=== PATIENT | male | born 2000 | race Hispanic/Latino ===

== ENCOUNTER 2018-12-23 11:04 | Inpatient (IN) ==
[2018-12-23] MEDS ORDERED: NS 1,000 ML IV ONE ×2 (11:36→11:38)
[2018-12-23] MEDS ORDERED: TORADOL IV ONE (11:37)
[2018-12-23] MEDS ORDERED: ZOFRAN IV ONE (11:37)
[2018-12-23 11:58] LABS: URINE SOURCE CLEAN CATCH
[2018-12-23 12:04] LABS: BASO# 0.02 X1000 (0.0-0.2); BASO% 0.1 % (0.0-0.8); EOS# 0.05 X1000 (0.0-0.7); EOS% 0.3 % (0.0-10.0); HEMATOCRIT 40.5 % (42.0-52.0); HEMOGLOBIN 14.1 g/dL (14.0-18.0); IMM GRAN# 0.04 X1000 (0.0-0.04); IMM GRAN% 0.2 % (0.0-0.5); LYMPH# 1.91 X1000 (1.2-3.4); LYMPH% 10.9 % (20.5-51.1); MCHC 34.8 g/dL (33-37); MCV 80.5 FL (81-99); MONO# 1.36 X1000 (0.11-0.59); MONO% 7.7 % (1.7-9.3); MPV 10.4 FL (7.4-10.4); NEUT# 14.17 X1000 (1.4-6.5); NEUT% 80.8 % (42.2-75.2); PLT 295 X1000 (130-400); RBC 5.03 XMIL (4.7-6.1); WBC 17.55 X1000 (4.8-10.8)
[2018-12-23 12:05] LABS: BILIRUBIN URINE NEGATIVE (NEGATIVE); BLOOD URINE TRACE (NEGATIVE); COLOR YELLOW; GLUCOSE URINE NEGATIVE (NEGATIVE); KETONE URINE TRACE mg/dL (NEGATIVE); LEUKOCYTES URINE NEGATIVE (NEGATIVE); NITRITE URINE NEGATIVE (NEGATIVE); PROTEIN URINE NEGATIVE (NEGATIVE); TURBIDITY URINE CLEAR (CLEAR); UROBILINOGEN URINE NORMAL (NORMAL)
[2018-12-23 12:06] LABS: UR EPITHELIAL CELLS <10 /HPF (<10); URINE BACTERIA NEGATIVE /HPF; URINE RBC <10 /HPF (<10); URINE WBC <10 /HPF (<10)
[2018-12-23 12:08] LABS: INR 1.07; PROTIME 14.1 Seconds (11.0-16.0)
[2018-12-23 12:09] LABS: PTT 27.9 Seconds (22.3-41.8)
[2018-12-23 12:27] LABS: AGAP 12; ALB/GLOB RATIO 1.3; ALBUMIN 4.8 g/dL (3.5-5.0); ALKALINE PHOSPHATASE 136 U/L (32-122); BUN 8 mg/dL (8-22); CALCIUM 9.6 mg/dL (8.8-10.2); CHLORIDE 104 mmol/L (98-107); COSMO 276; CREATININE 0.5 mg/dL (0.7-1.2); ESTIMATED GFR > 60; GLUCOSE 107 mg/dL (70-104); GOT 17 U/L (10-34); GPT 35 U/L (10-44); LIPASE 11 U/L (13-60); POTASSIUM 3.8 mmol/L (3.5-5.1); SODIUM 139 mmol/L (136-145); TCO2 23 mmol/L (25-35); TOTAL BILIRUBIN 0.45 mg/dL (0.20-1.00); TOTAL PROTEIN 8.6 g/dL (6.3-8.3)
[2018-12-23] MEDS ORDERED: ZOSYN 4.5 GM in NS 100 ML IV ONE (13:54)
--- NOTE | 2018-12-23 13:57 | Diag Imaging Result Doc PS360 ---
EXAM: CT ABD/PELVIS W/IV CONT ONLY INDICATION: RLQ PAIN TECHNIQUE: This exam was performed using automated exposure control, adjustment of mA or kV according to patient size, and/or use of iterative reconstruction technique. COMPARISON: None. FINDINGS: There is suggestion of minimal hepatic steatosis. The gallbladder, spleen, pancreas, adrenal glands, kidneys, and urinary bladder are unremarkable. There is an appendicolith at the base of the appendix and the appendix is grossly dilated with extensive periappendiceal inflammatory change consistent with acute appendicitis. The appendix measures up to 1.5 cm in diameter axially. There is nonloculated free fluid around the appendix as well as layering in the pelvis. No well-defined abscess or free abdominal gas is identified to indicate perforation at this time. There is reactive lymphadenopathy in the right lower quadrant. The remainder of the GI tract is essentially unremarkable. IMPRESSION: Acute appendicitis as described with no current CT evidence of perforation. The findings were discussed with Aldair Ni M.D. at 12/23/2018 1:49 PM and was acknowledged. Electronically signed by Dev Acuna 12/23/2018 1:55 PM
--- NOTE | 2018-12-23 14:00 | PROVIDER DOCUMENTATION ---
This chart was entered by Jennie Magallanes Scribe, acting as scribe for Sky Marquez MD. HPI-Abdominal Pain/GI Problem - General Chief Complaint: Abdominal Pain Stated Complaint: STOMACH PAIN Time Seen by Provider: 12/23/18 11:33 Source: patient Allergies/Adverse Reactions: Patient Allergies Allergy/AdvReac Type Severity Reaction Status Date / Time No Known Allergies Allergy Verified 12/23/18 11:31 Home Medications: Home Medication List Medication Instructions Recorded Confirmed Last Taken Type NK [No Home Medications] 12/23/18 12/23/18 Unknown History - History of Present Illness-ABD Nature of Presenting Problems: 18 yom presents to the ed with c/o RLQ pain with nausea and decreased appetite. pt sts onset of pain was 3 days prior and has worsened with time. pt sts he ate a banana for breafast 1 hr prior to arrival in er. pt sts pain is worse with movement, cough or jostling in a car ride. pt on exam is nontoxic in appearance Abdominal Pain Onset Location: reports: RLQ Pain Radiation: reports: no radiation Quality of Pain: reports: cramping Severity in ED: reports: moderate Onset/Duration: reports: 3 days ago Timing: reports: still present, getting worse Activities at Onset: reports: light activity Exposure to sick contacts?: No Modifying Factors: improves with: immobilization. worse with: movement, palpation Associated Symptoms: reports: malaise, nausea. denies: back/neck pain, chest pain, diarrhea, shortness of breath, vomiting Last BM: this morning Dark Stools Present?: reports: none noticed # of Diarrhea Episodes: 0 Rectal Pain: reports: none # of Vomiting Episodes: 0 Emesis Description: reports: none Bruising or Bleeding Gums?: No Similar Symptoms Previously?: No Recently seen or treated by another doctor?: No Review of Systems - Adult - REVIEW OF SYSTEMS - ADULT Constitutional: reports: no symptoms reported Eyes: reports: no symptoms reported Ears, Nose, Mouth & Throat: reports: no symptoms reported Cardiovascular: denies: chest pain, palpitations, syncope Respiratory: denies: shortness of breath, wheezing Gastrointestinal: reports: see HPI, abdominal pain, nausea. denies: diarrhea, vomiting Genitourinary: reports: no symptoms reported Musculoskeletal: denies: back pain, neck pain Integumentary: reports: no symptoms reported Neurological: denies: dizziness/vertigo, headache/migraines Psychiatric: reports: no symptoms reported Endocrine: reports: no symptoms reported Hematologic/Lymphatic: reports: no symptoms reported Allergic/Immunologic: reports: no symptoms reported All Other Systems: Reviewed and Negative Past History - Adult - PAST MEDICAL HISTORY-ADULT Review of Records: reports: Old Records Reviewed, Nursing Assessment Review, Medications Reviewed, Social history reviewed & non-contributory. Major Childhood Illnesses: reports: denies history Cardiovascular: reports: denies history Respiratory: reports: denies history Gastrointestinal: reports: denies history Genitourinary: reports: denies history Musculoskeletal: reports: denies history Neurological: reports: denies history Psychiatric: reports: denies history Endocrine/Immune: reports: denies history Other Conditions: reports: denies history - PRIOR SURGERIES/PROCEDURES Surgical/Procedure History: reports: reviewed, not pertinent - IMMUNIZATION STATUS Childhood Immunizations: See Nurse Assessment Flu Vaccine: See Nurse Assessment - FAMILY HISTORY Family History: reviewed, not pertinent - SOCIAL HISTORY Smoking: denies Substance Use: alcohol, other (sts substance abuse but did not sts what kind) Alcohol Use Frequency: occasionally Number of drinks per typical drinking period:: 3-4 drinks Living Situation: family Physical Exam-General - PHYSICAL EXAM-ADULT Initial Vital Signs Reviewed: Yes - CONSTITUTIONAL General Appearance: appears well, alert, mild distress - EYES Eyes: PERRL/EOMI, pink conjunctivae - HEAD, EARS, NOSE, MOUTH & THROAT HENMT: moist mucous membranes - NECK Neck: full range of motion, supple, normal inspection - RESPIRATORY Respiratory: chest non-tender, lungs clear, normal breath sounds - CARDIOVASCULAR Cardiovascular: normal peripheral pulses, regular rate, rhythm - GASTROINTESTINAL (ABDOMEN) Abdominal Exam: soft, guarding, rebound (RLQ), tenderness, McBurney's point ten derness - GENITOURINARY Male Genitalia: deferred Rectal Exam: deferred Hemoccult Exam: deferred - LYMPHATIC Lymphatic: no adenopathy - MUSCULOSKELETAL Back Exam: normal inspection, no CVA tenderness, no vertebral tenderness Extremity: normal range of motion, non-tender, normal inspection - SKIN Integumentary: normal color, normal turgor, warm/dry - NEUROLOGIC Neurologic: grossly normal - PSYCHIATRIC Psych/Mental Status: normal mood/affect, normal thought content, normal thought process, oriented x 3 Progress - PLAN OF CARE/RESULTS Progress/Plan/Lab Results: Vital Signs - 8 hr 12/23/18 11:22 Temperature 98.5 F Pulse Rate 70 Respiratory Rate 18 Blood Pressure 112/69 O2 Sat by Pulse Oximetry 100 Orders Category Date Time Status NPO Diet 12/23/18 11:37 Active CBC WITH DIFF [HEME] Stat Lab 12/23/18 11:37 Uncollected COMPREHENSIVE METABOLIC PANEL [CHEM] Stat Lab 12/23/18 11:37 Uncollected LIPASE [CHEM] Stat Lab 12/23/18 11:37 Uncollected MAGNESIUM [CHEM] Stat Lab 12/23/18 11:37 Uncollected PT [PROTIME WITH INR] [COAG] Stat Lab 12/23/18 11:37 Uncollected PTT [COAG] Stat Lab 12/23/18 11:37 Uncollected UA NIMS W/REFLEX CULT [URINALYSIS] Stat Lab 12/23/18 11:37 Uncollected 0.9% Sodium Chloride Inj [Ns] 1,000 ml Med 12/23/18 11:38 Active IV 150 mls/hr 0.9% Sodium Chloride Inj [Ns] 1,000 ml Med 12/23/18 11:36 Active IV 999 mls/hr Ketorolac [Toradol] Med 12/23/18 11:37 Discontinued 30 mg IV NOW ONE Ondansetron [Zofran] Med 12/23/18 11:37 Discontinued 4 mg IV NOW ONE Result Diagrams: 12/23/18 11:45 12/23/18 11:45 - REASSESSMENT Reassessment #1 Time Reassessed: 11:45 Status: unchanged Reassessment #2 Time Reassessed: 13:58 Status: unchanged - CT/MRI 1 CT Study: Abdomen, Pelvis Impression: See EMR Report (EXAM: CT ABD/PELVIS W/IV CONT ONLY INDICATION: RLQ PAIN TECHNIQUE: This exam was performed using automated exposure control, adjustment of mA or kV according to patient size, and/or use of iterative reconstruction technique. COMPARISON: None. FINDINGS: There is suggestion of minimal hepatic steatosis. The gallbladder, spleen, pancreas, adrenal glands, kidneys, and urinary bladder are unremarkable. There is an appendicolith at the base of the appendix and the appendix is grossly dilated with extensive periappendiceal inflammatory change consistent with acute appendicitis. The appendix measures up to 1.5 cm in diameter axially. There is nonloculated free fluid around the appendix as well as layering in the pelvis. No well-defined abscess or free abdominal gas is identified to indicate perforation at this time. There is reactive lymphadenopathy in the right lower quadrant. The remainder of the GI tract is essentially unremarkable. IMPRESSION: Acute appendicitis as described with no current CT evidence of perforation. The findings were discussed with Aldair Ni M.D. at 12/23/2018 1:49 PM and was acknowledged. Electronically signed by Dev Acuna 12/23/2018 1:55 PM 12/23/18 [id number] Interpreting Physician: Dev Acuna MD Dictated Date/Time: 12/23/18 1356 cc: Sky Marquez MD; None,PCP) - CONSULTS/PCP/HOSPITALIST Notification #1 *Consult/PCP/Hospitalist*: dr ni sx Time Discussed: 12:13 (will come to ed and pt will go to or) Reason/Comments: phone consult Consult Disposition: Will see in ED, Admit Departure - Departure Date of Disposition Decision: 12/23/18 Time of Disposition Decision: 13:57 DIAGNOSIS: Acute appendicitis Qualifiers: Acute appendicitis type: unspecified acute appendicitis type Qualified Code(s): K35.80 - Unspecified acute appendicitis Disposition: ADMITTED INPATIENT 09 Certified Medical Emergency: Emergent Condition: Stable Additional Freetext Instructions: ED Follow Up Instructions: You have been treated by a care provider in the Emergency Department. These instructions are being provided to you so you can have an understanding of how to care for yourself upon discharge. Upon discharge from the Emergency Department, you are responsible for making arrangements for follow-up care by a physician of your choice. Take all prescribed medications as directed. Return to the Emergency Department immediately for any new or worsening symptoms. You may call the Physician Referral phone number at [phone] to obtain a list of Physicians who are taking new patients. Referrals and Follow-Ups: None,PCP [Primary Care Provider] - - Critical Care Note This patient required my direct & personal management of CC.: Yes Total Time (mins): 32 Critical Care Statement: This patient required my direct personal management to treat or rule out processes, the absence of which, could potentiallly result in sudden, clinically significant life or limb threatening deterioration. Attestation - Physician/ AYLIN Attestation Patient care was provided by Advanced Practice Provider:: No The physician spent face to face time with patient:: Yes Advanced Practice Provider documentation review:: Supervising physician onsite and consulted in the evaluation and care of this patient. The physician did have a face to face encounter with the patient. This chart was documented by the indicated scribe, (Jennie Magallanes Scribe) and accurately reflects the services I performed and decisions made by me, Sky Marquez MD, as attested by the provider's signature.
[2018-12-23] MEDS ORDERED: FENTANYL ONE ×2 (15:52→17:06)
[2018-12-23] MEDS ORDERED: DIPRIVAN 1% ONE (15:53)
[2018-12-23] MEDS ORDERED: LR 1,000 ML ONE (15:54)
[2018-12-23] MEDS ORDERED: SENSORCAINE 0.25%/EPI 1:200,000 ONE (15:54)
[2018-12-23] MEDS ORDERED: VERSED ONE (16:00)
[2018-12-23] MEDS ORDERED: XYLOCAINE-MPF 2% ONE (16:34)
[2018-12-23] MEDS ORDERED: ZEMURON ONE (16:34)
[2018-12-23] MEDS ORDERED: DECADRON ONE (16:34)
[2018-12-23] MEDS ORDERED: ROBINUL ONE (16:34)
[2018-12-23] MEDS ORDERED: ZOFRAN ONE (16:34)
[2018-12-23] MEDS ORDERED: NEOSTIGMINE ONE (16:35)
[2018-12-23] MEDS: DILAUDID ONE ×2 (17:29→17:39)
[2018-12-23] MEDS ORDERED: ZOFRAN PO PRN (17:41)
[2018-12-23] MEDS ORDERED: NS 1,000 ML ONE (17:50)
[2018-12-23] MEDS ORDERED: NORCO-10 ONE (17:50)
[2018-12-23] MEDS: NS 1,000 ML IV SCH (18:56)
--- NOTE | 2018-12-23 21:49 | OPERATIVE NOTE ---
PROCEDURE DATE: 12/23/2018 PREOPERATIVE DIAGNOSIS: Appendicitis. POSTOP DIAGNOSIS: Suppurative appendicitis. PROCEDURE: Laparoscopic appendectomy. SURGEON: Cong Ni MD. ROCK STAR: None. ANESTHESIA: General tracheal. INTRAOPERATIVE FINDINGS: Appendicitis. COMPLICATIONS: None at time of dictation. ESTIMATED BLOOD LOSS: 30 mL. SPECIMEN REMOVED: Appendix. DRAINS: 19 Faroese. BRIEF HISTORY: A 18-year-old male presenting with abdominal pain for several days. He had a CT scan in the emergency department that showed appendicitis that was close to being perforated, so that he would benefit from appendectomy. The risks, benefits, and alternatives were discussed. All questions answered. DESCRIPTION OF PROCEDURE: After informed consent was obtained, the patient brought to the operative theatre, transferred to the operative table and placed in the supine position. General endotracheal anesthesia was then performed without complication. A formal time-out was then performed confirming patient and procedure. All were in agreement. At that time, attention was given to the abdomen. An infraumbilical incision was made through which, using Optiview technique, we initially inserted a 5 mm trocar and then transitioned to a 12 mm trocar. Connected insufflation. Pneumoperitoneum was achieved. Under direct visualization, we placed 2 more trocars, both 5 mm, 1 in the right upper quadrant, 1 in the left lower quadrant. Using these, the appendix was identified. It was very thickened and inflamed, consistent with suppurative appendicitis. We were able to with some difficulty, elevate it. It was intimately attached to the retroperitoneum, the terminal ileum and the sidewall of the pelvis. We were able to, with a combination of blunt dissection and LigaSure, elevate it. We came across the mesentery with the LigaSure. We made sure to preserve the terminal ileum and the cecum as best we could. Once we had elevated it up enough, we came across it with a NANCY stapler with thick load, 45 mm, with good results. It did not seem like there was any drainage, succus, or stool. It seemed like we got the whole appendix out, the best I could visualize. We did not injure the terminal ileum and cecum in this process. We irrigated out the abdomen until the suction fluid was clear. We placed the appendix in an Endobag and brought out through the infraumbilical incision. Given the inflammation, elected to leave a drain. We tunneled it from the left lower quadrant incision and secured it in place in a standard fashion. Removed all trocars, disconnected insufflation after closing the infraumbilical incision with 0 Vicryl on a Jaime Carlos device. All skin incisions were closed with 4-0 Monocryl. The patient tolerated the procedure well. He will be monitored at least overnight. cc: Cong Ni MD
[2018-12-23] MEDS: ZOSYN 3.375 GM in NS 50 ML IV SCH (22:10)
[2018-12-23] MEDS: NORCO-10 PO PRN (22:19)
[2018-12-24] MEDS: NORCO-10 PO PRN ×2 (04:12→11:39)
[2018-12-24] MEDS: ZOSYN 3.375 GM in NS 50 ML IV SCH (04:12)
--- NOTE | 2018-12-24 06:06 | GENERAL SURGERY PROGRESS NOTE ---
DATE: 12/24/2018 SUBJECTIVE: Patient seems to be doing well. OBJECTIVE: Vital Signs: Patient is currently afebrile. His vital signs are stable. General: No acute distress. Cardiovascular: Regular rate and rhythm. Lungs: Grossly clear. Abdomen: Soft, appropriately tender. EDITH drain in place with minimal serosanguineous output. ASSESSMENT AND PLAN: A 18-year-old gentleman status post appendectomy for suppurative appendicitis. Postoperative state. At this time, he seems to be doing well. He has not spiked fever. We will plan on discharge today. I am discharging him on Augmentin. cc: Cong Ni MD MTDD
[2018-12-24] MEDS: NS 1,000 ML IV SCH (06:20)
[2018-12-24 07:26] VITALS: BP 131/75
[2018-12-24] MEDS ORDERED: PERIDEX MT SCH (09:00)
== END 2018-12-24 11:45 | disposition home or self-care (01) | DRG 343 ==
LOC: ED 11:04 → 4N 18:38
PROVIDERS: ADMIT Surgery; ATTEND Surgery